=== PATIENT | female | born 1950 | race African-American/Black ===

== ENCOUNTER 2018-06-10 15:26 | Inpatient (IN) | payer MEDICARE, OTHER ==
[~2018-06-10] VITALS: Ht 157.5 cm; Wt 108.0 kg
[2018-06-10 16:54] LABS: Basophils # (auto) 0 uL; Basophils % (auto) 0.2 % (0.0-2.0); Eosinophils # (auto) 0 uL; Lymphocytes # (auto) 1.2 uL; Monocytes # (auto) 0.4 uL; Neutrophils % (auto) 88.6 % (37.0-80.0)
[2018-06-10 16:55] LABS: Hematocrit 49.7 % (36.0-46.0); Hemoglobin 14.3 g/dL (12.2-16.2); Lymphocytes % (auto) 8.4 % (10.0-50.0); Mean Corpuscular Hemoglobin 27.3 pg (28.0-32.0); Mean Corpuscular Hgb Conc. 28.8 g/dL (32.0-36.0); Mean Corpuscular Volume 94.7 fL (80.0-100.0); Monocytes % (auto) 2.8 % (0.0-12.0); Neutrophils # (auto) 12.9 uL; Nucleated Red Blood Cells % 0.1 %; Platelet Count (auto) 382 10^3/uL (140-450); Red Blood Cells 5.25 10^6/uL (4.0-5.20); Red Cell Distribution Width 15.5 % (11.8-14.3); White Blood Cell 14.6 10^3/uL (4.4-10.8)
[2018-06-10] MEDS ORDERED: SODIUM CHLORIDE 0.9% 1,000 ML IV ONE (17:00)
[2018-06-10 17:10] LABS: Calcium 10.2 mg/dL (8.5-10.1)
[2018-06-10 17:17] LABS: Urine Bacteria FEW /hpf (None Seen); Urine Blood 2+ /uL (Negative); Urine Specific Gravity 1.028 (1.001-1.035); Urine WBC 22 /hpf (0 - 5)
[2018-06-10 17:19] LABS: BUN/Creatinine Ratio 19.1; Bilirubin, Total 0.5 mg/dL (0.2-1.0); Magnesium 3.6 mg/dL (1.6-2.6)
[2018-06-10 17:24] LABS: Potassium 6.5 mmol/L (3.5-5.1)
[2018-06-10] MEDS ORDERED: InsuLIN R (HUMAN) 100 UNITS in SODIUM CHL 0.9% 99 ML IV SCH (17:29)
[2018-06-10] MEDS ORDERED: cefTRIAXone 1GM/50ML D5W 50 ML IV ONE ×2 (17:30→19:45)
[2018-06-10] MEDS ORDERED: DEXTROSE (50%) 50ML SYRG IV PRN (17:30)
[2018-06-10] MEDS: SODIUM CHLORIDE 0.9% 1,000 ML IV SCH ×2 (18:10→19:29)
[2018-06-10] MEDS ORDERED: ACETAMINOPHEN 650 MG RECT SUPP PR ONE (19:45)
[2018-06-10] MEDS ORDERED: VANCOMYCIN PER PHARMACY 0 MG IV SCH (20:30)
[2018-06-10] MEDS ORDERED: ACETAMINOPHEN 325 MG TAB PO PRN (20:30)
[2018-06-10] MEDS ORDERED: ONDANSETRON HCL 4 MG/2 ML VIAL IV PRN (20:30)
[2018-06-10] MEDS ORDERED: MORPHINE SULFATE 4 MG/ML SYR/VIAL IV PRN (20:30)
[2018-06-10 20:35] LABS: INR 1.04 (0.9-1.15); Partial Thromboplastin Time 21.4 sec (23.78-33.04); Prothrombin Time 11.1 sec (9.27-12.13)
[2018-06-10 20:40] LABS: Lactic Acid w/Reflex 4.6 mmol/L (0.4-2.0)
[2018-06-10] MEDS ORDERED: VANCOMYCIN 1GM/250ML 250 ML IV ONE ×2 (21:00→23:00)
[2018-06-10] MEDS ORDERED: SODIUM CHLORIDE 0.9% 1,000 ML IV SCH (21:29)
[2018-06-10 21:57] LABS: Calcium 9.5 mg/dL (8.5-10.1); Potassium 4.4 mmol/L (3.5-5.1)
[2018-06-10 22:05] LABS: BUN/Creatinine Ratio 19.7
[2018-06-10] MEDS ORDERED: InsuLIN REG 1unit/0.01ml Soln (100units/ml) ONE (22:56)
[2018-06-10 23:59] LABS: Calcium 8.9 mg/dL (8.5-10.1); Potassium 4.1 mmol/L (3.5-5.1)
[2018-06-11] VITALS (73 sets, daily range): BP systolic 106–193; BP diastolic 27–113
[2018-06-11] MEDS ORDERED: CAR125T PO (00:55)
[2018-06-11] MEDS ORDERED: SUCR1TAB PO (00:55)
[2018-06-11] MEDS ORDERED: DULO60CA PO (00:55)
[2018-06-11] MEDS ORDERED: INSDRIP IV (00:55)
[2018-06-11] MEDS ORDERED: AMLO5TAB13 PO (00:55)
[2018-06-11] MEDS ORDERED: PANT40TA2 PO (00:55)
[2018-06-11] MEDS ORDERED: LOVA20TA4 PO (00:55)
[2018-06-11] MEDS ORDERED: LOSA100T33 PO (00:55)
[2018-06-11] MEDS ORDERED: GABA300C10 PO (00:55)
[2018-06-11] MEDS: LABETALOL HCL 5 MG/ML ML 20ML VIAL IV PRN ×2 (01:27→03:48)
[2018-06-11 04:53] LABS: Anion Gap 12 (5-15); BUN/Creatinine Ratio 21.1; Blood Urea Nitrogen 56 mg/dL (7-18); Calcium 8.8 mg/dL (8.5-10.1); Carbon Dioxide 21 mmol/L (21-32); Chloride 122 mmol/L (98-107); GFR African American 23 mL/min; GFR Non-African American 19 mL/min; Glucose 161 mg/dL (74-106); Potassium 4.4 mmol/L (3.5-5.1); Sodium 155 mmol/L (136-145)
[2018-06-11] MEDS: SODIUM CHLORIDE 0.9% 1,000 ML IV SCH ×2 (06:19)
[2018-06-11 11:43] LABS: Calcium 8.7 mg/dL (8.5-10.1); Potassium 4.1 mmol/L (3.5-5.1)
[2018-06-11 11:46] LABS: BUN/Creatinine Ratio 23.4
[2018-06-11] MEDS ORDERED: INSULIN LANTUS (GLARGINE) 1 /0.01ml (100units/ml) SC ONE (12:00)
[2018-06-11] MEDS ORDERED: CARVEDILOL 12.5 MG TAB PO ONE (12:15)
[2018-06-11] MEDS ORDERED: PANTOPRAZOLE 40 MG TAB PO ONE (12:15)
[2018-06-11] MEDS: SOD CHL 0.45% 1,000 ML IV SCH ×2 (12:15→21:49)
[2018-06-11] MEDS ORDERED: DEXTROSE (50%) 50ML SYRG IV PRN (15:00)
[2018-06-11] MEDS: ACCU-CHEK COMFORT CURVE STRIP VI SCH ×2 (15:51→20:00)
[2018-06-11] MEDS: InsuLIN REG 1unit/0.01ml Soln (100units/ml) SC SCH ×2 (15:51→20:19)
[2018-06-11] MEDS ORDERED: SUCRALFATE 1 GM/10 ML ORAL SUSP ONE (16:26)
[2018-06-11] MEDS: SUCRALFATE 1 GM TAB PO SCH ×2 (16:39→21:48)
[2018-06-11] MEDS: HYDROcodone-ACET 5/325MG TAB PO PRN (20:21)
[2018-06-11] MEDS: CARVEDILOL 12.5 MG TAB PO SCH (21:48)
[2018-06-11] MEDS: ATORVASTATIN 20 MG TAB PO SCH (21:48)
[2018-06-11] MEDS: cefTRIAXone 1GM/50ML D5W 50 ML IV SCH (21:49)
[2018-06-11] MEDS ORDERED: VANCOMYCIN 1GM/250ML 250 ML IV ONE (22:00)
[2018-06-12] VITALS (76 sets, daily range): BP systolic 120–173; BP diastolic 37–135
[2018-06-12] MEDS: ACCU-CHEK COMFORT CURVE STRIP VI SCH ×6 (00:06→20:00)
[2018-06-12] MEDS ORDERED: DEXTROSE (50%) 50ML SYRG IV PRN (01:30)
[2018-06-12 01:44] LABS: Basophils # (auto) 0 uL; Basophils % (auto) 0.3 % (0.0-2.0); Eosinophils # (auto) 0.2 uL; Eosinophils % (auto) 1.9 % (0.0-7.0); Hematocrit 34.7 % (36.0-46.0); Hemoglobin 10.8 g/dL (12.2-16.2); Lymphocytes % (auto) 31.7 % (10.0-50.0); Mean Corpuscular Hgb Conc. 31.3 g/dL (32.0-36.0); Mean Corpuscular Volume 86.5 fL (80.0-100.0); Monocytes # (auto) 0.8 uL; Monocytes % (auto) 6.1 % (0.0-12.0); Neutrophils # (auto) 7.5 uL; Nucleated Red Blood Cells % 0.1 %; Platelet Count (auto) 210 10^3/uL (140-450); Red Blood Cells 4.01 10^6/uL (4.0-5.20); Red Cell Distribution Width 14.6 % (11.8-14.3); White Blood Cell 12.5 10^3/uL (4.4-10.8)
[2018-06-12 02:02] LABS: Albumin 2.6 g/dL (3.4-5.0); Calcium 7.8 mg/dL (8.5-10.1); Magnesium 2.6 mg/dL (1.6-2.6); Potassium 4.2 mmol/L (3.5-5.1)
[2018-06-12 02:05] LABS: BUN/Creatinine Ratio 17.8; Bilirubin, Total 0.2 mg/dL (0.2-1.0); Phosphorus 2.6 mg/dL (2.5-4.90); Total Protein 6.7 g/dL (6.4-8.2); Uric Acid 8.4 mg/dL (2.6-6.0)
[2018-06-12] MEDS: InsuLIN REG 1unit/0.01ml Soln (100units/ml) SC SCH ×5 (04:18→20:07)
[2018-06-12] MEDS: SUCRALFATE 1 GM TAB PO SCH ×4 (06:32→21:46)
[2018-06-12] MEDS: HYDROcodone-ACET 5/325MG TAB PO PRN ×2 (07:44→21:46)
[2018-06-12] MEDS: SOD CHL 0.45% 1,000 ML IV SCH ×2 (08:15→14:43)
[2018-06-12] MEDS: PANTOPRAZOLE 40 MG TAB PO SCH (10:07)
[2018-06-12] MEDS: CARVEDILOL 12.5 MG TAB PO SCH ×2 (10:09→21:45)
[2018-06-12 10:23] LABS: Urine Bacteria FEW /hpf (None Seen); Urine Blood 2+ /uL (Negative); Urine Specific Gravity 1.025 (1.001-1.035); Urine WBC 14 /hpf (0 - 5)
[2018-06-12 10:35] LABS: Protein, Urine 199.8 mg/dL (0.0-11.9)
[2018-06-12] MEDS ORDERED: THROAT LOZENGES(CEPASTAT) MT PRN (12:00)
[2018-06-12] MEDS ORDERED: INSULIN LANTUS (GLARGINE) 1 /0.01ml (100units/ml) SC ONE (13:30)
[2018-06-12] MEDS ORDERED: DULoxetine HCL 30 MG CAP PO ONE (13:45)
[2018-06-12] MEDS ORDERED: amLODIPine BESYLATE 5 MG TAB PO ONE (13:45)
[2018-06-12] MEDS: GABAPENTIN 400 MG CAP PO SCH ×2 (15:03→21:45)
[2018-06-12 16:28] LABS: % Iron Saturation 15.3 % (15-50)
[2018-06-12] MEDS: NYSTATIN (MOUTH-THROAT) 500,000 UNITS/5 ML SUSP MT SCH (21:46)
[2018-06-12] MEDS: cefTRIAXone 1GM/50ML D5W 50 ML IV SCH (21:46)
[2018-06-12] MEDS: ATORVASTATIN 20 MG TAB PO SCH (21:46)
[2018-06-12] MEDS: INSULIN LANTUS (GLARGINE) 1 /0.01ml (100units/ml) SC SCH (21:46)
[2018-06-12] MEDS ORDERED: INSULIN LANTUS (GLARGINE) 1 /0.01ml (100units/ml) SC SCH (22:00)
[2018-06-13] VITALS (17 sets, daily range): BP systolic 117–163; BP diastolic 53–70
[2018-06-13] MEDS: SOD CHL 0.45% 1,000 ML IV SCH (03:41)
[2018-06-13] MEDS: InsuLIN REG 1unit/0.01ml Soln (100units/ml) SC SCH ×4 (03:41→12:02)
[2018-06-13] MEDS: ACCU-CHEK COMFORT CURVE STRIP VI SCH ×4 (03:45→11:49)
[2018-06-13 03:51] LABS: Basophils # (auto) 0 uL; Eosinophils # (auto) 0.3 uL; Eosinophils % (auto) 2.2 % (0.0-7.0); Hemoglobin 11.3 g/dL (12.2-16.2); Monocytes # (auto) 0.6 uL; Neutrophils # (auto) 6.3 uL; White Blood Cell 12.2 10^3/uL (4.4-10.8)
[2018-06-13 03:54] LABS: Basophils % (auto) 0.2 % (0.0-2.0); Hematocrit 36.3 % (36.0-46.0); Lymphocytes # (auto) 5.1 uL; Lymphocytes % (auto) 41.3 % (10.0-50.0); Mean Corpuscular Hemoglobin 27.1 pg (28.0-32.0); Mean Corpuscular Hgb Conc. 31.2 g/dL (32.0-36.0); Mean Corpuscular Volume 86.7 fL (80.0-100.0); Monocytes % (auto) 4.7 % (0.0-12.0); Neutrophils % (auto) 51.6 % (37.0-80.0); Nucleated Red Blood Cells % 0.2 %; Platelet Count (auto) 228 10^3/uL (140-450); Red Blood Cells 4.19 10^6/uL (4.0-5.20); Red Cell Distribution Width 14.7 % (11.8-14.3)
[2018-06-13 04:08] LABS: BUN/Creatinine Ratio 15.5; Calcium 8.5 mg/dL (8.5-10.1); Potassium 3.9 mmol/L (3.5-5.1)
[2018-06-13] MEDS: NYSTATIN (MOUTH-THROAT) 500,000 UNITS/5 ML SUSP MT SCH ×2 (05:47→11:54)
[2018-06-13] MEDS: GABAPENTIN 400 MG CAP PO SCH ×2 (05:47→13:41)
[2018-06-13] MEDS: INSULIN LANTUS (GLARGINE) 1 /0.01ml (100units/ml) SC SCH (06:35)
[2018-06-13] MEDS: SUCRALFATE 1 GM TAB PO SCH ×2 (06:35→09:15)
[2018-06-13] MEDS: CARVEDILOL 12.5 MG TAB PO SCH (09:17)
[2018-06-13] MEDS: PANTOPRAZOLE 40 MG TAB PO SCH (09:18)
[2018-06-13] MEDS ORDERED: DULoxetine HCL 30 MG CAP PO SCH (10:00)
[2018-06-13] MEDS ORDERED: amLODIPine BESYLATE 5 MG TAB PO SCH (10:00)
[2018-06-13] MEDS ORDERED: AMLO5TAB13 PO (11:06)
[2018-06-13] MEDS ORDERED: ASP81EC PO (11:06)
[2018-06-13] MEDS ORDERED: INSLANTI SC (11:06)
[2018-06-13] MEDS ORDERED: CAR125T PO (11:06)
[2018-06-13] MEDS ORDERED: LOVA20TA4 PO (11:06)
[2018-06-13] MEDS ORDERED: PANT40TA2 PO (11:06)
[2018-06-13] MEDS ORDERED: LEVO250T19 PO (11:15)
== END 2018-06-13 14:49 | disposition home or self-care (01) | DRG 871 ==
LOC: ER 15:26 → OVERFLOW 21:55 → ICU WEST 22:59
PROVIDERS: ADMIT Nurse Practitioner Family; ATTEND Internal Medicine
DX: A41.9 Sepsis, unspecified organism (principal); G93.41 Metabolic encephalopathy; N17.0 Acute kidney failure with tubular necrosis; E11.10 Type 2 diabetes mellitus with ketoacidosis without coma; N39.0 Urinary tract infection, site not specified; B37.0 Candidal stomatitis; E87.1 Hypo-osmolality and hyponatremia; N18.4 Chronic kidney disease, stage 4 (severe); Z68.41 Body mass index [BMI] 40.0-44.9, adult; E66.01 Morbid (severe) obesity due to excess calories; I12.9 Hypertensive chronic kidney disease with stage 1 through stage 4 chronic kidney disease, or unspecified chronic kidney disease; E87.5 Hyperkalemia; Z88.0 Allergy status to penicillin; Z88.8 Allergy status to other drugs, medicaments and biological substances; E11.21 Type 2 diabetes mellitus with diabetic nephropathy; E11.22 Type 2 diabetes mellitus with diabetic chronic kidney disease; E11.40 Type 2 diabetes mellitus with diabetic neuropathy, unspecified; D63.8 Anemia in other chronic diseases classified elsewhere; E78.5 Hyperlipidemia, unspecified; K21.9 Gastro-esophageal reflux disease without esophagitis; Z82.49 Family history of ischemic heart disease and other diseases of the circulatory system; Z83.3 Family history of diabetes mellitus; Z96.653 Presence of artificial knee joint, bilateral; Z79.4 Long term (current) use of insulin; Z79.899 Other long term (current) drug therapy
CPT/HCPCS: 36415; 36600; 51702; 70450; 71045; 80048; 80053; 80061; 80202; 81001; 82570; 82805; 82962; 83036; 83540; 83550; 83605; 83735; 83880; 84100; 84156; 84300; 84443; 84484; 84550; 85025; 85610; 85730; 87040; 87081; 87086; 93005; 94761; 96365; 96366; 96367; 96375; 97110; 97116; 97530; A6257; G0378; J0696; J1815

== ENCOUNTER 2018-08-22 17:10 | Emergency (ER) | payer OTHER ==
[~2018-08-22] VITALS: Ht 157.5 cm; Wt 112.9 kg
[~2018-08-22 17:10] MED LIST: AMLO5TAB13 PO; ASP81EC PO; CAR125T PO; DULO60CA PO; GABA300C10 PO; INSDRIP IV; INSLANTI SC; LEVO250T19 PO; LOSA100T33 PO; LOVA20TA4 PO; PANT40TA2 PO; SUCR1TAB PO
[2018-08-22 17:50] LABS: Eosinophils # (auto) 0.5 uL; Mean Corpuscular Hemoglobin 26.9 pg (28.0-32.0); Mean Corpuscular Hgb Conc. 31.7 g/dL (32.0-36.0); Monocytes # (auto) 0.5 uL
[2018-08-22 17:52] LABS: Basophils # (auto) 0 uL; Basophils % (auto) 0.4 % (0.0-2.0); Hematocrit 37.1 % (36.0-46.0); Hemoglobin 11.8 g/dL (12.2-16.2); Lymphocytes # (auto) 3.8 uL; Lymphocytes % (auto) 34.2 % (10.0-50.0); Monocytes % (auto) 4.3 % (0.0-12.0); Neutrophils # (auto) 6.2 uL; Neutrophils % (auto) 56.1 % (37.0-80.0); Nucleated Red Blood Cells % 0.2 %; Platelet Count (auto) 344 10^3/uL (140-450); Red Blood Cells 4.37 10^6/uL (4.0-5.20); Red Cell Distribution Width 15.2 % (11.8-14.3)
[2018-08-22 18:07] LABS: Albumin 3.3 g/dL (3.4-5.0); Calcium 9.1 mg/dL (8.5-10.1); Potassium 4.4 mmol/L (3.5-5.1)
[2018-08-22 18:10] LABS: Bilirubin, Total 0.2 mg/dL (0.2-1.0); Total Protein 8.1 g/dL (6.4-8.2)
[2018-08-22 18:37] LABS: Urine Bacteria FEW /hpf (None Seen); Urine Blood Negative /uL (Negative); Urine Specific Gravity 1.011 (1.001-1.035); Urine WBC 1 /hpf (0 - 5)
[2018-08-22 20:10] VITALS: BP 132/67
== END 2018-08-22 20:13 | disposition home or self-care (01) ==
LOC: ER 17:18
DX: S40.011A Contusion of right shoulder, initial encounter (principal); J20.9 Acute bronchitis, unspecified; E11.9 Type 2 diabetes mellitus without complications; E78.5 Hyperlipidemia, unspecified; I10 Essential (primary) hypertension; Z88.1 Allergy status to other antibiotic agents; Z88.0 Allergy status to penicillin; Z91.040 Latex allergy status; Z79.82 Long term (current) use of aspirin; Z79.4 Long term (current) use of insulin; Z79.899 Other long term (current) drug therapy; Z98.51 Tubal ligation status; W18.39XA Other fall on same level, initial encounter; Y93.89 Activity, other specified; Y99.8 Other external cause status; Y92.89 Other specified places as the place of occurrence of the external cause
CPT/HCPCS: 36415; 71046; 73030; 80053; 81001; 85025; 93005